=== PATIENT | female | born 1960 | race Caucasian/White ===

== ENCOUNTER 2017-08-05 14:39 | Emergency (ER) | payer BC, OTHER ==
[2017-08-05 14:59] VITALS: BP 122/82
--- NOTE | 2017-08-05 15:10 | UC ---
Lower Extremity/Ankle HPI - HPI Summary HPI Summary: 57 y/o female presets to the urgent care c/o Rt ankle pain w/ swelling s/p twisting it and falling while playing tennis about 1hrs ago. Pt reports she applied ice and took 2 tabs PO of Ibuprofen to alleviate symptoms. Pain is 7/10 w/ movement, sharp w/o any radiation. she also states swelling on the lateral side of her ankle w/ some bruising. 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 Onset/Duration: Sudden Onset, Lasting Hours - 1 hr ago Severity Initially: Moderate Severity Currently: Moderate Pain Intensity: 7 Pain Scale Used: 0-10 Numeric Aggravating Factor(s): Standing, Ambulation Alleviating Factor(s): Rest, Ice, OTC Meds - took 2 ibuprofen Able to Bear Weight: Yes - w/ limping - Risk Factors Gout Risk Factors: Negative DVT Risk Factors: Negative Septic Arthritis Risk Factor: Negative <Shell Longo - Last Filed: 08/05/17 16:05> <Araseli Reagan - Last Filed: 08/05/17 16:16> - History of Current Complaint Chief Complaint: UCLowerExtremity Stated Complaint: LEG INJURY Time Seen by Provider: 08/05/17 14:59 - Allergies/Home Medications Allergies/Adverse Reactions: Allergies Allergy/AdvReac Type Severity Reaction Status Date / Time bacitracin Allergy Rash And Verified 08/05/17 14:59 Itching PMH/Surg Hx/FS Hx/Imm Hx Previously Healthy: Yes - Pt denies PMHX - Surgical History Surgical History: Yes Surgery Procedure, Year, and Place: hernia repair - Family History Known Family History: Positive: Diabetes Family History: Prostate CA, Parkinson, Osteoarthritis - Social History Occupation: Employed Full-time Lives: With Family Alcohol Use: Weekly Alcohol Amount: 2 Substance Use Type: None Smoking Status (MU): Never Smoked Tobacco <Shell Longo - Last Filed: 08/05/17 16:05> Review of Systems Constitutional: Negative Skin: Negative Eyes: Negative ENT: Negative Respiratory: Negative Cardiovascular: Negative Gastrointestinal: Negative Genitourinary: Negative Motor: Decreased ROM - RT ankle Musculoskeletal: Decreased ROM - RT ankle, Other: - RT ankle pain s/p fall while playing tennis Neurological: Negative Psychological: Negative Is Patient Immunocompromised?: No All Other Systems Reviewed And Are Negative: Yes <Shell Longo - Last Filed: 08/05/17 16:05> Physical Exam - Summary Physical Exam Summary: Vital Signs Reviewed: Yes General: well developed, well nourished female, sitting in the examining table w /o any apparent distress Eyes: Positive: Conjunctiva Clear - PERRLA, EOMI, ENT: Positive: Normal ENT inspection, Hearing grossly normal, Pharynx normal, TMs normal Neck: Positive: Supple, Nontender, No Lymphadenopathy Respiratory: Positive: Chest non-tender, Lungs clear, Normal breath sounds, No respiratory distress Cardiovascular: Positive: RRR, No Murmur, Pulses Normal, Brisk Capillary Refill Abdomen Description: Positive: Nontender, No Organomegaly, Soft. Negative: CVA Tenderness (R), CVA Tenderness (L) Bowel Sounds: Positive: Present Musculoskeletal: - Ankle: Pt is able to bear weight and ambulate w/ limping. The R ankle is without obvious asymmetry or deformity when compared to the L ankle. Decreased ROM due to pain. Moderate swelling at the lateral malleolus, with tenderness to palpation. mild ecchymosis and bruising observed lateral malleollus. No tenderness to palpation over the medial malleolus , no swelling observed. Talar tilt test is negative for ligament laxity to valgus or varus stress. Negative anterior drawer. Peroneal nerve is intact with strong eversion and plantar flexion. Positive sensation over the Rt foot and Rt ankle, positive pulses, capillary refill intact Neurological Exam: Normal Psychological Exam: Normal Skin: warm and dry Triage Information Reviewed: Yes Vital Signs: Initial Vital Signs Temp 98.5 F 08/05/17 14:50 Pulse 74 08/05/17 14:50 Resp 16 08/05/17 14:50 BP 122/82 08/05/17 14:50 Pulse Ox 100 08/05/17 14:50 <Shell Longo - Last Filed: 08/05/17 16:05> Vital Signs: Initial Vital Signs Temp 98.5 F 08/05/17 14:50 Pulse 74 08/05/17 14:50 Resp 16 08/05/17 14:50 BP 122/82 08/05/17 14:50 Pulse Ox 100 08/05/17 14:50 <Araseli Reagan - Last Filed: 08/05/17 16:16> Lower Extremity Course/Dx - Course Course Of Treatment: 57 y/o female presets to the urgent care c/o Rt ankle pain w/ swelling s/p twisting it and falling while playing tennis about 1hrs ago. Pt reports she applied ice and took 2 tabs PO of Ibuprofen to alleviate symptoms. Pain is 7/10 w/ movement, sharp w/o any radiation. she also states swelling on the lateral side of her ankle w/ some bruising. Pt denies numbness and tingling over the foot, SOB, chest pain, calf pain, abdominal pain, N/V/D. Hx obtained. Rt ankle X-ray ordered, Impression: Soft tissue swelling, no acute fracture. Pt most likely with a RT ankle Sprain. Pt immobilized with gel ankle splint and jennifer bandage , given crutches to avoid weight bearing, Rx Ibuprofen PO to decrease swelling and pain. Pt advised RICE, take Ibuprofen PO for pain and to f/u with PCP on orthopedic Dr Montana in 1 week if not improvement of symptoms for further treatment. Pt understood and agreed and left the clinic ambulating w/ the help of crutches. - Differential Dx/Diagnosis Differential Diagnosis/HQI/PQRI: Contusion, Dislocation, Fracture (Closed), Sprain, Strain, Tendonitis Provider Diagnoses: 1- Acute RT ankle pain s/p fall. 2-RT ankle swelling <Shell Longo - Last Filed: 08/05/17 16:05> Discharge <Shell Longo - Last Filed: 08/05/17 16:05> <Araseli Reagan - Last Filed: 08/05/17 16:16> - Discharge Plan Condition: Stable Disposition: HOME Prescriptions: Ibuprofen TAB* [Motrin TAB* 800 MG] 800 mg PO Q6H PRN #30 tab PRN Reason: Pain Patient Education Materials: Ankle Sprain (ED) Referrals: Esdras Chapman MD [Primary Care Provider] - 1 Week Seth Montana MD [Medical Doctor] - 1 Week Additional Instructions: 1-Please take medications as directed to alleviate pain and swelling. 2-Please apply ice, keep your ankle immobilized with the jennifer bandage and Gel splint. Avoid weight bearing using the crutches 3- Please f/u with Orthopedic Dr Montana or your PCP in 1 week is not improvement of symptoms for further evaluation and treatment. Attestation Statement User Type: Provider - I was available for consult. This patient was seen by the JENNIFER. The patient was not presented to, seen by, or examined by me. Emiliano <Araseli Reagan - Last Filed: 08/05/17 16:16>
--- NOTE | 2017-08-05 15:28 | RAD ---
HISTORY: Right ankle pain status post fall COMPARISONS: None VIEWS: 3, Frontal, lateral, and oblique views of the right ankle FINDINGS: BONE DENSITY: Normal. BONES: There is no displaced fracture. JOINTS: There is no arthropathy. ALIGNMENT: There is no dislocation. SOFT TISSUES: There is soft tissue swelling over the lateral malleolus. OTHER FINDINGS: None. IMPRESSION: SOFT TISSUE SWELLING. NO ACUTE OSSEOUS INJURY. IF SYMPTOMS PERSIST, RECOMMEND REPEAT IMAGING.
== END 2017-08-05 16:15 | disposition home or self-care (01) ==
LOC: UCEAST 14:39
DX: M25.571 Pain in right ankle and joints of right foot (principal); M25.471 Effusion, right ankle; S99.911A Unspecified injury of right ankle, initial encounter; X50.1XXA Overexertion from prolonged static or awkward postures, initial encounter; Y93.73 Activity, racquet and hand sports; Y92.312 Tennis court as the place of occurrence of the external cause; Z88.3 Allergy status to other anti-infective agents
CPT/HCPCS: 99214; G0463

== ENCOUNTER 2017-08-14 10:23 | Emergency (ER) | payer BC ==
[2017-08-14 12:53] LABS: ABS Basophils 0 10^3/ul (0-0.2); ABS Eosinophils 0.1 10^3/ul (0-0.6); ABS Monocytes 0.6 10^3/ul (0-0.8); ABS Nucleated RBC 0 10^3/ul; Hematocrit 39 % (35-47); Hemoglobin 13.1 g/dl (12.0-16.0); Lymphocyte % 29.4 % (25-47); Mean Corpuscular HGB Conc 34 g/dl (31-36); Mean Corpuscular Hemoglobin 29 pg (27-31); Mean Corpuscular Volume 86 fL (80-97); Mean Platelet Volume 8.2 um3 (7.4-10.4); Nucleated Red Blood Cells % 0.1; Platelet Count 270 10^3/ul (150-450); Red Cell Distribution Width 13 % (10.5-15); White Blood Count 6.8 10^3/ul (3.5-10.8)
[2017-08-14 13:00] LABS: INR 0.95 (0.77-1.02)
--- NOTE | 2017-08-14 13:31 | RAD ---
HISTORY: Palpitation COMPARISONS: None VIEWS: 1: frontal portable view of the chest at 1:20 PM FINDINGS: LINES AND TUBES: None. CARDIOMEDIASTINAL SILHOUETTE: The cardiomediastinal silhouette is normal for portable technique. PLEURA: The costophrenic angles are sharp. No pleural abnormalities are noted. LUNG PARENCHYMA: The lungs are clear. ABDOMEN: The upper abdomen is clear. There is no subphrenic gas. BONES AND SOFT TISSUES: No bone or soft tissue abnormalities are noted. IMPRESSION: NO ACTIVE CARDIOPULMONARY DISEASE.
[2017-08-14 15:24] VITALS: BP 124/96
--- NOTE | 2017-08-14 18:35 | ED ---
Satnam Denis Julia, scribed for Daryl Kwan MD on 08/14/17 at 1118 . Palpitations / Dysrhythmia - HPI Summary HPI Summary: This patient is a 57 year old F presenting to [facility] with a chief complaint of palpitation described as racing since 23:00 last night. Patient reports dizziness with onset of palpitations that has resolved, but is now feeling clammy. Patient ambiguously reports SOB. Symptoms are unchanged by regulating breath. Patient states she has been taking 800mg of Ibuprofen every six hours daily for a sprained ankle. Patient reports Melatonin use due to difficulty sleeping secondary to her ankle discomfort. She reports restless sleep last night due to her symptoms. - History of Current Complaint Chief Complaint: EDDysrhythmPalp Time Seen by Provider: 08/14/17 11:07 Hx Obtained From: Patient Onset/Duration: Sudden Onset, Lasting Hours Alleviating: Nothing Associated Signs & Symptoms: Dizzy, Diaphoresis - Allergy/Home Medications Allergies/Adverse Reactions: Allergies Allergy/AdvReac Type Severity Reaction Status Date / Time bacitracin Allergy Rash And Verified 08/05/17 14:59 Itching PMH/Surg Hx/FS Hx/Imm Hx Endocrine/Hematology History: Denies: Hx Diabetes, Hx Systemic Lupus Erythematosus Cardiovascular History: Denies: Hx Congestive Heart Failure, Hx Hypertension GI History: Reports: Other GI Disorders - rlq pain 3-4 weeks,per pt feels palpable area. constipation History: Denies: Hx Dialysis, Hx Renal Disease Musculoskeletal History: Denies: Hx Rheumatoid Arthritis - Cancer History Hx Chemotherapy: No - Surgical History Surgery Procedure, Year, and Place: hernia repair Infectious Disease History: No Infectious Disease History: Denies: Traveled Outside the [place] in Last 30 Days - Family History Known Family History: Positive: Diabetes Family History: Prostate CA, Parkinson, Osteoarthritis - Social History Alcohol Use: Weekly Alcohol Amount: 2 Substance Use Type: Reports: None Smoking Status (MU): Never Smoked Tobacco Review of Systems Positive: Skin Diaphoresis Positive: Palpitations Negative: Shortness Of Breath Neurological: Other - dizziness All Other Systems Reviewed And Are Negative: Yes Physical Exam - Summary Physical Exam Summary: Appearance: The patient is well-nourished in no acute distress and in no acute pain. Skin: The skin is warm and dry and skin color reflects adequate perfusion. HEENT: The head is normocephalic and atraumatic. The pupils are equal and reactive. The conjunctivae are clear and without drainage. Nares are patent and without drainage. Mouth reveals moist mucous membranes and the throat is without erythema and exudate. The external ears are intact. The ear canals are patent and without drainage. The tympanic membranes are intact. Neck: the neck is supple with full range of motion and non-tender. There are no carotid bruits. There is no neck vein distension. Respiratory: Chest is non-tender. Lungs are clear to auscultation and breath sounds are symmetrical and equal. Cardiovascular: Heart is regular rate and rhythm. There is no murmur or rub auscultated. There is no peripheral edema and pulses are symmetrical and equal. Abdomen: The abdomen is soft and non-tender. There are normal bowel sounds heard in all four quadrants and there is no organomegaly palpated. Musculoskeletal: There is no back tenderness noted. Extremities are non-tender with full range of motion. There is good capillary refill. There is no peripheral edema or calf tenderness elicited. Neurological: Patient is alert and oriented to person, place and time. The patient has symmetrical motor strength in all four extremities. Cranial nerves are grossly intact. Deep tendon reflexes are symmetrical and equal in all four extremities. Psychiatric: The patient has an appropriate affect and does not exhibit any anxiety or depression. Triage Information Reviewed: Yes Vital Signs On Initial Exam: Initial Vitals Temp Pulse Resp BP Pulse Ox 98.7 F 77 18 136/80 100 08/14/17 10:33 08/14/17 10:33 08/14/17 10:33 08/14/17 10:33 08/14/17 10:33 Vital Signs Reviewed: Yes Diagnostics - Vital Signs Vital Signs Temp Pulse Resp BP Pulse Ox 08/14/17 10:33 98.7 F 77 18 136/80 100 - Laboratory Lab Results: Lab Results 08/14/17 08/14/17 08/14/17 Range/Units 12:41 12:41 12:41 WBC 6.8 (3.5-10.8) 10^3/ul RBC 4.50 (4.0-5.4) 10^6/ul Hgb 13.1 (12.0-16.0) g/dl Hct 39 (35-47) % MCV 86 (80-97) fL MCH 29 (27-31) pg MCHC 34 (31-36) g/dl RDW 13 (10.5-15) % Plt Count 270 (150-450) 10^3/ul MPV 8.2 (7.4-10.4) um3 Neut % (Auto) 59.2 (38-83) % Lymph % (Auto) 29.4 (25-47) % [place] % (Auto) 8.8 H (0-7) % Eos % (Auto) 2.0 (0-6) % Baso % (Auto) 0.6 (0-2) % Absolute Neuts (auto) 4.0 (1.5-7.7) 10^3/ul Absolute Lymphs (auto) 2.0 (1.0-4.8) 10^3/ul Absolute Monos (auto) 0.6 (0-0.8) 10^3/ul Absolute Eos (auto) 0.1 (0-0.6) 10^3/ul Absolute Basos (auto) 0 (0-0.2) 10^3/ul Absolute Nucleated RBC 0 10^3/ul Nucleated RBC % 0.1 INR (Anticoag Therapy) (0.77-1.02) D-Dimer, Quantitative (Less Than 230) ng/mL Sodium 138 (133-145) mmol/L Potassium 4.4 (3.5-5.0) mmol/L Chloride 105 (101-111) mmol/L Carbon Dioxide 29 (22-32) mmol/L Anion Gap 4 (2-11) mmol/L BUN 11 (6-24) mg/dL Creatinine 0.66 (0.51-0.95) mg/dL Est GFR ( Amer) 119.6 (>60) Est GFR (Non-Af Amer) 93.0 (>60) BUN/Creatinine Ratio 16.7 (8-20) Glucose 91 (70-100) mg/dL Lactic Acid (0.5-2.0) mmol/L Calcium 9.9 (8.6-10.3) mg/dL Magnesium 2.3 (1.9-2.7) mg/dL Total Bilirubin 0.40 (0.2-1.0) mg/dL AST 18 (13-39) U/L ALT 11 (7-52) U/L Alkaline Phosphatase 70 (34-104) U/L Troponin I 0.00 (<0.04) ng/mL B-Natriuretic Peptide 44 ( - 100) pg/mL Total Protein 7.1 (6.4-8.9) g/dL Albumin 4.1 (3.2-5.2) g/dL Globulin 3.0 (2-4) g/dL Albumin/Globulin Ratio 1.4 (1-3) TSH 1.61 (0.34-5.60) mcIU/mL 08/14/17 08/14/17 Range/Units 12:41 12:41 WBC (3.5-10.8) 10^3/ul RBC (4.0-5.4) 10^6/ul Hgb (12.0-16.0) g/dl Hct (35-47) % MCV (80-97) fL MCH (27-31) pg MCHC (31-36) g/dl RDW (10.5-15) % Plt Count (150-450) 10^3/ul MPV (7.4-10.4) um3 Neut % (Auto) (38-83) % Lymph % (Auto) (25-47) % [place] % (Auto) (0-7) % Eos % (Auto) (0-6) % Baso % (Auto) (0-2) % Absolute Neuts (auto) (1.5-7.7) 10^3/ul Absolute Lymphs (auto) (1.0-4.8) 10^3/ul Absolute Monos (auto) (0-0.8) 10^3/ul Absolute Eos (auto) (0-0.6) 10^3/ul Absolute Basos (auto) (0-0.2) 10^3/ul Absolute Nucleated RBC 10^3/ul Nucleated RBC % INR (Anticoag Therapy) 0.95 (0.77-1.02) D-Dimer, Quantitative < 200 (Less Than 230) ng/mL Sodium (133-145) mmol/L Potassium (3.5-5.0) mmol/L Chloride (101-111) mmol/L Carbon Dioxide (22-32) mmol/L Anion Gap (2-11) mmol/L BUN (6-24) mg/dL Creatinine (0.51-0.95) mg/dL Est GFR ( Amer) (>60) Est GFR (Non-Af Amer) (>60) BUN/Creatinine Ratio (8-20) Glucose (70-100) mg/dL Lactic Acid 0.7 (0.5-2.0) mmol/L Calcium (8.6-10.3) mg/dL Magnesium (1.9-2.7) mg/dL Total Bilirubin (0.2-1.0) mg/dL AST (13-39) U/L ALT (7-52) U/L Alkaline Phosphatase (34-104) U/L Troponin I (<0.04) ng/mL B-Natriuretic Peptide ( - 100) pg/mL Total Protein (6.4-8.9) g/dL Albumin (3.2-5.2) g/dL Globulin (2-4) g/dL Albumin/Globulin Ratio (1-3) TSH (0.34-5.60) mcIU/mL Result Diagrams: 08/14/17 12:41 08/14/17 12:41 Lab Statement: Any lab studies that have been ordered have been reviewed, and results considered in the medical decision making process. - Radiology CXR Radiology Interpretation Completed By: Radiologist - NO ACTIVE CARDIOPULMONARY DISEASE. ED Physician has reviewed this report. - EKG 1102 Cardiac Rate: NL - at 65 BPM EKG Rhythm: Sinus Rhythm Re-Evaluation - Re-Evaluation 1 Re-Evaluation Time: 15:11 Comment: Results discussed with patient. Patient will be discharged. Course/Dx - Course Course Of Treatment: Ms. Ronquillo was monitored here in the ED while labs were checked. She remained stable without ectopy and was D/C'd to F/U with her PMD. This may be GI irritation from all the ibuprofen that she has been taking for her ankle and I recommended that she stop. - Diagnoses Provider Diagnoses: Palpitations Discharge - Sign-Out/Discharge Documenting (check all that apply): Discharge - Discharge Plan Condition: Stable Disposition: HOME Patient Education Materials: Heart Palpitations (ED) Referrals: Esdras Chapman MD [Primary Care Provider] - 3 Days (Follow up with your Primary Care Provider in the next 2-3 days.) Additional Instructions: Stop Ibuprofen use. - Billing Disposition and Condition Condition: STABLE Disposition: HOME The documentation as recorded by the scribe, Roetzer,Cari accurately reflects the service I personally performed and the decisions made by me, Daryl Kwan MD.
== END 2017-08-14 15:22 | disposition home or self-care (01) ==
LOC: ED 10:23
DX: R00.2 Palpitations (principal)
CPT/HCPCS: 36415; 71045; 80053; 83605; 83735; 83880; 84443; 84484; 85025; 85379; 85610; 93005; 99283